=== PATIENT | female | born 1990 | race Caucasian/White ===

== ENCOUNTER 2016-11-26 03:26 | Emergency (ER) | payer OTHER ==
[~2016-11-26] VITALS: Ht 162.6 cm; Wt 56.7 kg
[~2016-11-26 03:26] MED LIST: DIPH25CA58 PO
[2016-11-26 04:17] VITALS: BP 108/69
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
== END 2016-11-26 05:42 | disposition short-term general hospital (02) ==
LOC: ER 03:33
DX: T76.21XA Adult sexual abuse, suspected, initial encounter (principal); F17.210 Nicotine dependence, cigarettes, uncomplicated; J45.909 Unspecified asthma, uncomplicated; F31.9 Bipolar disorder, unspecified; F20.9 Schizophrenia, unspecified
CPT/HCPCS: 99285